=== PATIENT | female | born 2000 | race Caucasian/White ===

== ENCOUNTER 2021-09-06 16:44 | Emergency (ER) | payer OTHER ==
[~2021-09-06 16:44] MED LIST: VENTOLIN HFA IN18 GM INH
[2021-09-06 19:01] LABS: BASOPHIL 0.5 % (0-2); EOSINOPHIL 0.8 % (0-5); HCT 37.6 % (37.0-47.0); HGB 11.9 g/dl (12.5-16.0); LYMPHOCYTE 20.6 % (15-48); MCH 26.2 pg (25.0-31.0); MCHC 31.6 g/dL (32.0-36.0); MCV 82.6 fL (78.0-100.0); MONOCYTE 5.8 % (0-12); MPV 8.7 fL (6.0-9.5); NEUTROPHIL 71.9 % (41-80); NRBC 0; PLT 467 K/uL (150-400); RBC 4.55 M/uL (4.20-5.40); RDW 13.8 % (11.5-14.0); WBC 12.2 K/uL (4.0-10.5)
[2021-09-06 19:03] LABS: BILIRUBIN NEGATIVE (NEGATIVE); BLOOD NEGATIVE Ery/uL (NEGATIVE); CLARITY HAZY (CLEAR); COLOR YELLOW (YELLOW); GLUCOSE (U) NORMAL (NORMAL); LEUKOCYTES 1+ Leu/uL (NEGATIVE); NITRITE NEGATIVE (NEGATIVE); PROTEIN NEGATIVE (NEGATIVE); UROBILINOGEN 0.2 mg/dL (0.2-1.0); pH 6.5 (5.0-9.0)
[2021-09-06 19:06] LABS: AMPHETAMINES NEGATIVE (NEGATIVE); BARBITURATES NEGATIVE (NEGATIVE); ECSTASY (MDMA) NEGATIVE (NEGATIVE); MARIJUANA (THC) NEGATIVE (NEGATIVE); METHADONE NEGATIVE (NEGATIVE); OPIATES POSITIVE (NEGATIVE); OXYCODONE NEGATIVE (NEGATIVE)
[2021-09-06 19:14] LABS: BACTERIA 3+
[2021-09-06 19:16] LABS: SQUAMOUS EPITHELIAL CELLS 20-50
[2021-09-06 19:17] LABS: BUN/CREAT RATIO (CALC) 16.1 RATIO; CREATININE 0.56 mg/dL (0.51-0.95)
[2021-09-06 19:18] LABS: POTASSIUM 5.2 mmol/L (3.5-5.1)
[2021-09-06 19:19] LABS: AMORPHOUS URATES CRYSTALS TRACE
[2021-09-06] MEDS ORDERED: BACTRIM DS TAB1 EACH PO (20:27)
== END 2021-09-06 22:09 | disposition home or self-care (01) ==
LOC: FER 16:44
PROVIDERS: Nurse Practitioner Family
DX: R51.9 Headache, unspecified (principal); N39.0 Urinary tract infection, site not specified
CPT/HCPCS: 36415; 70450; 80048; 80305; 81001; 85025; 87088; J1100; J1885; J2405; J7030

== ENCOUNTER 2022-01-29 22:16 | Emergency (ER) | payer OTHER ==
[~2022-01-29 22:16] MED LIST changes: +BACTRIM DS TAB1 EACH PO
== END 2022-01-30 00:15 | disposition home or self-care (01) ==
LOC: FER 22:16
DX: S93.401A Sprain of unspecified ligament of right ankle, initial encounter (principal); W10.9XXA Fall (on) (from) unspecified stairs and steps, initial encounter; Y92.009 Unspecified place in unspecified non-institutional (private) residence as the place of occurrence of the external cause
CPT/HCPCS: 73610; 73630

== ENCOUNTER 2022-05-15 19:47 | Emergency (ER) | payer OTHER ==
[2022-05-15 21:36] LABS: BASOPHIL 0.2 % (0-2); EOSINOPHIL 0.4 % (0-5); HCT 34.6 % (37.0-47.0); HGB 11.5 g/dl (12.5-16.0); LYMPHOCYTE 13.2 % (15-48); MCH 28.5 pg (25.0-31.0); MCHC 33.2 g/dL (32.0-36.0); MCV 85.6 fL (78.0-100.0); MONOCYTE 5.2 % (0-12); MPV 9.7 fL (6.0-9.5); NEUTROPHIL 80.5 % (41-80); NRBC 0; PLT 406 K/uL (150-400); RBC 4.04 M/uL (4.20-5.40); RDW 13.9 % (11.5-14.0); WBC 14.1 K/uL (4.0-10.5)
[2022-05-15 21:38] LABS: INR 1.06 (0.9-1.2); PROTHROMBIN TIME 13.5 SECONDS (11.9-13.9); PTT 27.8 SECONDS (24.9-34.6)
[2022-05-15 21:51] LABS: ALBUMIN 2.9 g/dL (3.4-5.0); BILIRUBIN - TOTAL 0.2 mg/dL (0.2-1.0); BUN/CREAT RATIO (CALC) 15.4 RATIO; CREATININE 0.52 mg/dL (0.51-0.95); GLOBULIN (CALCULATION) 4.5 g/dL; MAGNESIUM 1.8 mg/dL (1.8-2.4); POTASSIUM 3.7 mmol/L (3.5-5.1); TOTAL PROTEIN 7.4 g/dL (6.4-8.2)
== END 2022-05-15 22:18 | disposition home or self-care (01) ==
LOC: FER 19:47
PROVIDERS: Internal Medicine
DX: O26.892 Other specified pregnancy related conditions, second trimester (principal); R06.82 Tachypnea, not elsewhere classified; Z3A.19 19 weeks gestation of pregnancy
CPT/HCPCS: 36415; 71045; 80053; 83735; 83880; 84484; 85025; 85610; 85730; 93005